=== PATIENT | female | born 1970 | race Caucasian/White ===

== ENCOUNTER 2023-06-04 08:59 | Emergency (ER) | payer OTHER ==
[~2023-06-04] VITALS: Ht 170.2 cm; Wt 63.5 kg
[2023-06-04] MEDS ORDERED: BUSPIRONE HCL30 M1 PO (09:33)
[2023-06-04] MEDS ORDERED: MIRT15 PO (09:34)
[2023-06-04 10:56] VITALS: BP 98/58
[2023-06-04] MEDS ORDERED: PRED20 PO (11:02)
[2023-06-04] MEDS ORDERED: ALBU90OI INH (11:02)
[2023-06-04] MEDS ORDERED: AZIT250 PO (11:02)
== END 2023-06-04 11:20 | disposition home or self-care (01) ==
LOC: ER 08:59
DX: J44.1 Chronic obstructive pulmonary disease with (acute) exacerbation (principal); I45.10 Unspecified right bundle-branch block; Z88.6 Allergy status to analgesic agent; Z79.899 Other long term (current) drug therapy; Z87.891 Personal history of nicotine dependence; Z86.16 Personal history of COVID-19
CPT/HCPCS: 71046; 93005; 93010; 94640; 94644; 94664; 99285-25; A9270; J7512